=== PATIENT | male | born 2000 | race Caucasian/White ===

== ENCOUNTER 2018-11-09 08:20 | Emergency (ER) | payer MEDICAID ==
[~2018-11-09] VITALS: Ht 172.7 cm; Wt 85.2 kg
[2018-11-09 08:26] VITALS: BP 125/59; PULSE 54; RESP 18; Ht 172.7 cm; Wt 85.2 kg
[2018-11-09] MEDS ORDERED: NAPR-985 PO (10:16)
--- NOTE | 2018-11-09 11:28 | ERD ---
ER Documentation Chief Complaint Chief Complaint bilateral bottom feet pain x 1 week HPI 18-year-old male presenting with bilateral feet pain. Patient states is been going on for about a week. Hurts worse with walking. He denies any traumatic injuries. Denies any numbness or tingling. 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 Surgical surgical history abdominal surgery and shunt surgery. Social history denies ROS All systems reviewed and are negative except as per history of present illness. Medications Home Meds Active Scripts Naproxen* (Naprosyn*) 500 Mg Tablet, 500 MG PO BID PRN for PAIN AND/OR INFLA MMATION, #30 TAB Prov:MARSHA AGUILAR PA-C 11/09/18 PMhx/Soc Medical and Surgical Hx: pt denies Medical Hx, pt denies Surgical Hx Hx Alcohol Use: No Hx Substance Use: No Hx Tobacco Use: No Smoking Status: Never smoker FmHx Family History: No diabetes, No coronary disease, No other Physical Exam Vitals Vital Signs Date Temp Pulse Resp B/P (MAP) Pulse Ox O2 O2 Flow FiO2 Time Delivery Rate 11/09/18 97.8 54 18 125/59 96 08:26 (81) Physical Exam GENERAL: The patient is well-appearing, well-nourished, in no acute distress CHEST: Clear to auscultation bilaterally. There are no rales, wheezes or rhonchi. HEART: Regular rate and rhythm. No murmurs, clicks, rubs or gallops. EXTREMITIES: Equal pulses bilaterally. There is no peripheral clubbing, cyanosis or edema. No focal swelling or erythema. Full range of motion. Grossly neurovascularly intact. NEUROLOGIC: Alert and oriented. Cranial nerves II through XII intact. Motor strength in all 4 extremities with 5 out of 5 strength. Sensation grossly intact. Normal speech and gait. SKIN: There is no apparent rash or petechiae. The skin is warm and dry. Procedures/MDM DIAGNOSTIC IMAGING REPORT Patient: AYUSH ECKERT : 2000 Age: 18 Sex: M MR #: [id number] DOS: 11/09/18 0853 Ordering MD: CONSTANCE AGUILAR PA-C Location: [facility] Room/Bed: PROCEDURE: XR Foot. CLINICAL INDICATION: Bilateral foot pain TECHNIQUE: AP and Lateral views of the bilateral feet are available for review. COMPARISON: None available FINDINGS: Right foot: There is mild varus angulation of the right second proximal phalanx. The osseous structures otherwise demonstrate normal alignment and mineralization. No acute fracture or dislocation is seen. Joint spaces are maintained. No radiopaque foreign body is identified. The soft tissues are unremarkable. Left foot: There is mild abduction of the left second DIP joint. The osseous structures otherwise demonstrate normal alignment and mineralization. No acute fracture or dislocation is seen. Joint spaces are maintained. No radiopaque foreign body is identified. The soft tissues are unremarkable. IMPRESSION: 1. Mild varus angulation of the right second proximal phalanx. 2. Mild abduction of the left second DIP joint. MDM: 18-year-old male presenting with bilateral foot pain. I have low suspicion for acute fracture dislocation. Patient likely has plantar fasciitis and irritation. Patient will be discharged with supportive medications. Patient is told if symptoms change or worsen to return immediately to the ER. All questions answered at discharge Departure Diagnosis: Primary Impression: Plantar fascia syndrome Additional Impression: Foot pain Condition: Stable Patient Instructions: Plantar Fasciitis Referrals: [facility] YOU HAVE RECEIVED A MEDICAL SCREENING EXAM AND THE RESULTS INDICATE THAT YOU DO NOT HAVE A CONDITION THAT REQUIRES URGENT TREATMENT IN THE EMERGENCY DEPARTMENT. FURTHER EVALUATION AND TREATMENT OF YOUR CONDITION CAN WAIT UNTIL YOU ARE SEEN IN YOUR DOCTORS OFFICE WITHIN THE NEXT 1-2 DAYS. IT IS YOUR RESPONSIBILITY TO MAKE AN APPOINTMENT FOR FOLOW-UP CARE. IF YOU HAVE A PRIMARY DOCTOR --you should call your primary doctor and schedule an appointment IF YOU DO NOT HAVE A PRIMARY DOCTOR YOU CAN CALL OUR PHYSICIAN REFERRAL HOTLINE AT IF YOU CAN NOT AFFORD TO SEE A PHYSICIAN YOU CAN CHOSE FROM THE FOLLOWING [facility] [address] [facility]. [facility] [address] [facility] [address] [facility] [address] [facility]. [facility] [address] [facility]. [facility]. [address] Additional Instructions: FOLLOW UP WITH YOUR PRIMARY CARE PHYSICIAN TOMORROW.Return to this facility if you are not improving as expected. MARSHA AGUILAR PA-C Nov 09, 2018 11:28
== END 2018-11-09 10:31 | disposition home or self-care (01) ==
LOC: FTE 08:20
DX: M72.2 Plantar fascial fibromatosis (principal)

== ENCOUNTER 2018-12-30 09:45 | Emergency (ER) | payer MEDICAID, OTHER ==
[~2018-12-30] VITALS: Ht 175.3 cm; Wt 83.7 kg
[~2018-12-30 09:45] MED LIST: EXCED PO; NAPR-985 PO; TRAM50TA2 PO
[2018-12-30 09:54] VITALS: BP 127/74; PULSE 68; RESP 20; Ht 175.3 cm; Wt 83.7 kg
[2018-12-30] MEDS ORDERED: KETOROLAC 30 MG INJ IM STA (10:18)
[2018-12-30] MEDS ORDERED: ONDANSETRON (ODT) 4 MG TAB ODT STA (10:18)
--- NOTE | 2018-12-30 11:18 | ERD ---
ER Documentation Chief Complaint Chief Complaint nausea, headache x 4 days HPI 18-year-old male is here with headache that he has had for 4 days. He has nausea but no vomiting. He does have a history of headaches and states that he has a history of brain surgery and has a shunt. He denies any trauma. No fever. No visual changes. He just moved here from [place] so he has not yet seen his primary care doctor here in the [place]. He usually takes Toradol at home and tramadol which he does states help. ROS All systems reviewed and are negative except as per history of present illness. Medications Home Meds Active Scripts Acetaminophen/Aspirin/Caffeine* (Excedrin*) 1 Tab Tab, 1 TAB PO Q6, #20 TAB Prov:SAMUEL TRUJILLO PA-C 12/30/18 Tramadol HCl (Tramadol HCl) 50 Mg Tablet, 50 MG PO Q6 PRN for PAIN, #20 TAB Prov:SAMUEL TRUJILLO PA-C 12/30/18 Naproxen* (Naprosyn*) 500 Mg Tablet, 500 MG PO BID PRN for PAIN AND/OR INFLAMMATION, #30 TAB Prov:MARSHA AGUILAR PA-C 11/09/18 Allergies Allergies: Coded Allergies: omeprazole (Verified Allergy, Intermediate, TREMORS, 12/30/18) PMhx/Soc History of Surgery: Yes (encephalophy) Hx Neurological Disorder: No Hx Respiratory Disorders: No Hx Cardiac Disorders: No Hx Miscellaneous Medical Probl: No Hx Alcohol Use: No Hx Substance Use: No Hx Tobacco Use: No Smoking Status: Never smoker FmHx Family History: No diabetes Physical Exam Vitals Vital Signs Date Temp Pulse Resp B/P (MAP) Pulse Ox O2 O2 Flow FiO2 Time Delivery Rate 12/30/18 98.4 68 20 127/74 97 09:54 (91) Physical Exam INITIAL VITAL SIGNS: Reviewed by me GENERAL: Awake, alert and oriented x 4, well appearing, nontoxic, speaking in full sentences. No acute distress HEAD: Atraumatic NECK: Supple. No masses. Full range of motion. No meningismus. No midline te nderness. EYES: EOMI. PERRL. RESPIRATORY: Clear to auscultation bilaterally. Symmetric chest wall rise. No wheezing or rales. No accessory muscle use. CV: Regular rate and rhythm. No murmurs, rubs, or gallops. Neuro: M/S: Alert and oriented Face: EOMI, face and pharynx with normal sensation and function Motor: Normal strength throughout Sensation: Normal sensation throughout Speech: Normal Cerebel: Normal coordination Normal gait Normal finger to nose DTR: 2+ and symmetric upper/lower extremities Results 24 hrs Current Medications Medications Dose Sig/Romero Start Time Status Last (Trade) Ordered Route PRN Stop Time Admin Dose Reason Admin Ketorolac 30 mg ONCE STAT 12/30/18 DC 12/30/18 Tromethamine IM 10: 10:27 (Toradol) 12/30/18 10:19 Ondansetron 4 mg ONCE STAT 12/30/18 DC 12/30/18 HCl (Zofran ODT 10:18 10:25 Odt) 12/30/18 10:19 Procedures/MDM Patient is here with headache. He is neurologically intact. He was given Toradol and Zofran with improvement. CT was ordered and shows right transparietal ventriculoperitoneal shunt in which the configuration appears to be within normal limits. He was given copy of the results we can follow-up with primary care as well as prescription for Excedrin and tramadol. Patient counseled regarding my diagnostic impression and care plan. Prior to discharge all questions answered. Pt agrees with treatment plan and understands strict return precautions. Pt is instructed to follow up with primary care provider within 24-48 hours. Precautionary instructions provided including instructions to return to the ER if not improving or for any worsening or changing symptoms or concerns. Departure Diagnosis: Primary Impression: Headache Condition: Stable Patient Instructions: Headache, Unspecified Additional Instructions: Llame al doctor MANA y carmen lizeth LINDA PARA DENTRO DE 1-2 BROWNING.Dgale a la secretaria que nosotros le instruimos hacer esta linda.Avise o llame si bee condicin se empeora antes de la linda. Regresa aqui si peor o no mejor. SAMUEL TRUJILLO PA-C Dec 30, 2018 11:18
== END 2018-12-30 11:34 | disposition home or self-care (01) ==
LOC: FTE 09:45
DX: R51 Headache (principal)
CPT/HCPCS: 70450; 96372; J1885; Z7502; Z7610